=== PATIENT | male | born 1970 | race American Indian/Alaskan Native ===

== ENCOUNTER 2017-05-26 13:53 | Outpatient (CLI) | payer OTHER ==
--- NOTE | 2017-05-27 16:28 | Magnetic Resonance Report ---
MRI RIGHT KNEE WITHOUT CONTRAST: 05/26/17 CLINICAL: Right knee pain. TECHNIQUE: Sagittal proton density fat sat and T2, coronal T2 fat sat and proton density and axial gradient T2*sequences on a 1.5 Marta magnet. FINDINGS: The medial meniscus is degenerated and extruded out of the joint space. The medial joint space is narrowed. Large medial osteophytes and full-thickness thinning of the medial cartilage. The lateral meniscus is degenerated. Large lateral osteophytes and narrowing of the lateral joint space. Full-thickness thinning of the lateral femoral cartilage. Mild marrow edema at the anterior tibial spine. No bone contusion or fracture. The anterior and posterior cruciate ligaments are intact. The collateral ligaments are intact. Intact posterolateral corner structures including the popliteus tendon. There is a large knee joint effusion. Chondromalacia patella with partial-thickness thinning of the patellar cartilage. The patellar tendon and retinaculum are intact. There is a moderately large knee joint effusion. No popliteal cyst. IMPRESSION: 1. 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 2. No ligamentous injury. 3. Chondromalacia patellae. 4. A knee joint effusion.
== END 2017-05-26 13:54 | disposition home or self-care (01) ==
LOC: MRI 13:53
PROVIDERS: ATTEND Internal Medicine
DX: M23.303 Other meniscus derangements, unspecified medial meniscus, right knee (principal); M23.300 Other meniscus derangements, unspecified lateral meniscus, right knee; M17.11 Unilateral primary osteoarthritis, right knee; M22.41 Chondromalacia patellae, right knee; M25.761 Osteophyte, right knee; M25.461 Effusion, right knee
CPT/HCPCS: 73721